=== PATIENT | female | born 1955 | race African-American/Black ===

== ENCOUNTER → 2017-11-06 | Outpatient (CLI) | payer OTHER ==
--- NOTE | 2017-11-06 11:29 | RAD ---
Lumbar spine, 2 views, 11/06/2017: History: Back pain, previous disc herniation There is a mild lumbar scoliosis. The lumbar vertebral heights are well-maintained. There is mild disc space narrowing and moderate marginal spurring at L1-2. The disc spaces in the lower lumbar spine are well preserved. There are a few other scattered mild marginal spurs. There are mild to moderate degenerative changes involving scattered facet joints. There is slight associated reverse spondylolisthesis at L1-2, L2-3 and L3-4. IMPRESSION: Moderate multilevel degenerative change with dominant involvement of the upper lumbar spine as described above.
== END | disposition home or self-care (01) ==
LOC: RAD 09:45
PROVIDERS: ATTEND Surgery
DX: M51.36 Other intervertebral disc degeneration, lumbar region (principal); M43.16 Spondylolisthesis, lumbar region
CPT/HCPCS: 72100